=== PATIENT | male | born 1985 | race African-American/Black ===

== ENCOUNTER 2019-07-09 13:21 | Emergency (ER) | payer OTHER ==
[~2019-07-09] VITALS: Ht 167.6 cm; Wt 113.4 kg
[~2019-07-09 13:21] MED LIST: APAP500 PO; BUTALB-APAP-CA1 EACH PO; CATAPRES0.2 MG PO; CLONIDINE0.1 PO; DOXYCYCLINE 10100 MG PO; HYDRALAZINE 2525 MG PO; IBUPROFEN 800800 MG PO; LISINOPRIL10 MG PO; LISINOPRIL20 MG PO; LISINOPRIL5 MG PO; LOPRESSOR25 PO; NAPROSYN500 MG PO; NOHOMEMEDICATIONS; NORFLEX100 MG PO; NORVASC10 MG PO; NORVASC5 MG PO; POTASSIUM20 PO; SUDAFED PO; TEARS NATURALE1 EACH OPHTHALMIC; TYLENOL325 MG PO; ULTRAM 50MG TAB50 MG PO; UNICOMPLEX M TA1 TA1 PO; ZOFRAN ODT4 MG PO; ZPAK PO
[2019-07-09 13:23] VITALS: BP 183/132
[2019-07-09] MEDS ORDERED: AMOXICILLIN 50500 MG PO (13:46)
[2019-07-09] MEDS ORDERED: TRAMADOL 50 MG50 MG PO (13:58)
[2019-07-09] MEDS ORDERED: IBUPROFEN 800800 M1 PO (13:58)
== END 2019-07-09 13:46 | disposition home or self-care (01) ==
LOC: ER 13:21
DX: K04.7 Periapical abscess without sinus (principal); I10 Essential (primary) hypertension; Z91.14 Patient's other noncompliance with medication regimen

== ENCOUNTER 2020-02-06 12:36 | Emergency (ER) | payer OTHER ==
[~2020-02-06] VITALS: Ht 167.6 cm; Wt 67.1 kg
[~2020-02-06 12:36] MED LIST changes: +AMOXICILLIN 50500 MG PO; +IBUPROFEN 800800 M1 PO; +TRAMADOL 50 MG50 MG PO
[2020-02-06 12:55] LABS: URINE BLOOD NEGATIVE (Negative); URINE CLARITY CLEAR; URINE COLOR YELLOW; URINE GLUCOSE-RANDOM* NEGATIVE (Negative); URINE KETONES NEGATIVE (Negative); URINE LEUKOCYTES-REFLEX NEGATIVE (Negative); URINE NITRITE-REFLEX NEGATIVE (Negative); URINE PROTEIN (DIPSTICK) 2+ (Negative); URINE SPECIFIC GRAVITY 1.025 (1.005-1.035); URINE UROBILINOGEN 0.2 E.U./dl (0.2-1.0)
[2020-02-06 13:00] LABS: ICTOTEST (BILI CONFIRMATORY) Negative (Negative); URINE BILIRUBIN NEGATIVE (Negative)
[2020-02-06 13:48] LABS: HYALINE CASTS 4-10 Moderate /LPF (None Seen); MUCUS 4-6 Moderate strn/LPF (None Seen)
[2020-02-06 13:49] LABS: URINE RBC 0-2 Rare /HPF (0-2); URINE WBC-REFLEX 0-5 Rare /HPF (0-5)
[2020-02-06 13:50] LABS: BACTERIA-REFLEX 1-9 Few /HPF (None Seen); CRYSTALS None Seen /LPF (None Seen); SQUAMOUS None Seen /LPF (0-3)
[2020-02-06 14:32] LABS: BASOPHILS 1.1 % (0.0-2.0); EOSINOPHILS 5.9 % (0.0-3.0); HEMOGLOBIN 14.2 gm/dL (14.0-18.0); LYMPHOCYTES 31.5 % (24.0-44.0); MCH 31.2 pg (26.0-34.0); MCHC 34.6 g/dL (28.0-37.0); MCV 90.2 fL (80.0-100.0); MONOCYTES 4.1 % (1.0-8.0); PLATELET COUNT 227 thou/uL (150-400); POLYS 57.4 % (36.0-66.0); RBC 4.54 mil/uL (4.50-6.00); RDW 14.4 % (10.5-14.5); WBC 6.9 thou/uL (4.0-11.0)
[2020-02-06 14:47] LABS: CREATININE 1.4 mg/dL (0.7-1.3); POTASSIUM 3.9 mmol/L (3.5-5.1)
[2020-02-06 14:55] LABS: ALBUMIN 4.2 g/dL (3.4-5.0); TOTAL BILIRUBIN 0.8 mg/dL (0.2-1.0); TOTAL PROTEIN 8.4 g/dL (6.4-8.2)
[2020-02-06] MEDS ORDERED: NORCO 5-325 TA1 EAC2 PO (16:57)
[2020-02-06] MEDS ORDERED: CLONIDINE HCL0.1 M1 PO (17:05)
[2020-02-06 17:17] VITALS: BP 187/133
== END 2020-02-06 17:19 | disposition home or self-care (01) ==
LOC: ER 12:36
PROVIDERS: Physician Assistant
DX: M54.5 Low back pain (principal); R10.31 Right lower quadrant pain; I10 Essential (primary) hypertension